=== PATIENT | female | born 2000 | race Caucasian/White ===

== ENCOUNTER 2021-07-25 10:13 | Inpatient (IN) | payer SELFPAY ==
[~2021-07-25] VITALS: Ht 165.1 cm; Wt 77.7 kg
[2021-07-25] MEDS ORDERED: FENTANYL PF 100 MCG/2ML ONE (22:22)
[2021-07-25] MEDS ORDERED: MISOPROSTOL 200 MCG TABLET ONE (22:28)
[2021-07-25] MEDS ORDERED: FENTANYL PF 100 MCG/2ML IVPush PRN ×2 (22:30)
[2021-07-25] MEDS ORDERED: OXYTOCIN 30U/ 0.9% NaCL 500ML 500 ML IV ONE (22:30)
[2021-07-25] MEDS ORDERED: OXYcodone IR 5MG TABLET PO PRN ×2 (22:30)
[2021-07-25] MEDS ORDERED: RHOGAM FROM BLOOD BANK 1 NOTE EA IM/IV PRN (22:30)
[2021-07-25] MEDS ORDERED: ZOLPIDEM 10MG TABLET PO PRN (22:30)
[2021-07-25] MEDS ORDERED: OXYcodone/APAP 5/325MG TABLET PO PRN ×3 (22:30→23:30)
[2021-07-25] MEDS ORDERED: METOCLOPRAMIDE 5 MG/ML, 2ML IVPush PRN (22:30)
[2021-07-25] MEDS ORDERED: CALCIUM CARBONATE 500 MG TAB.CHEW PO PRN (22:30)
[2021-07-25] MEDS ORDERED: SODIUM CITRATE/CITRIC ACID 30 ML UDC PO PRN (22:30)
[2021-07-25] MEDS ORDERED: ACETAMINOPHEN 325 MG TABLET PO PRN ×3 (22:30→23:30)
[2021-07-25] MEDS ORDERED: LACTATED RINGERS 1,000 ML IV SCH ×2 (22:30)
[2021-07-25] MEDS ORDERED: morphine SULFATE 10 MG/ML, 1ML IVPush PRN ×2 (22:30)
[2021-07-25] MEDS ORDERED: DIPHENHYDRAMINE 50 MG CAPSULE PO PRN (22:30)
[2021-07-25] MEDS ORDERED: HYDROcodone/APAP 5/325 TABLET PO PRN (22:30)
[2021-07-25] MEDS ORDERED: ONDANSETRON 2MG/ML, 2ML IVPush PRN (22:30)
[2021-07-25] MEDS ORDERED: OXYcodone/APAP 10/325MG TABLET PO PRN (22:30)
[2021-07-25] MEDS ORDERED: HYDROcodone/APAP 10/325 MG TABLET PO PRN (22:30)
[2021-07-25] MEDS ORDERED: OXYTOCIN 10 UNITS/ML, 1ML IM PRN (22:30)
[2021-07-25] MEDS ORDERED: D5%-LACTATED RINGERS 1,000 ML IV SCH (22:30)
[2021-07-25] MEDS ORDERED: OXYTOCIN 30U/ 0.9% NaCL 500ML 500 ML IV PRN (22:30)
[2021-07-25] MEDS ORDERED: PLEASE ENTER ALLERGIES MC SCH (23:00)
[2021-07-25 23:25] LABS: BASOPHILS % (AUTO) 1 % (0-1); EOSINOPHILS % (AUTO) 0 % (1-7); LYMPHOCYTES % (AUTO) 8 % (22-44); MEAN CORPUSCULAR HEMOGLOBIN 32.4 pg (27.0-34.8); MEAN CORPUSCULAR HGB CONC 34.2 g/dL (32.4-35.8); MEAN PLATELET VOLUME 7.9 fL (7.4-10.4); MONOCYTES % (AUTO) 9 % (2-9); NEUTROPHILS % (AUTO) 82 % (42-75); PLATELET COUNT 93 x10^3/uL (130-400); RED BLOOD COUNT 4.15 x10^6/uL (3.82-5.3)
[2021-07-25] MEDS ORDERED: IBUPROFEN 600 MG TABLET PO PRN (23:30)
[2021-07-25] MEDS ORDERED: METHYLERGONOVINE 0.2 MG/ML IM PRN (23:30)
[2021-07-25] MEDS ORDERED: CARBOPROST TROMETHAMINE 250 MCG/ML, 1ML IM PRN (23:30)
[2021-07-25] MEDS ORDERED: METOCLOPRAMIDE 5 MG/ML, 2ML IV PRN (23:30)
[2021-07-25] MEDS ORDERED: MISOPROSTOL 200 MCG TABLET PR PRN (23:30)
[2021-07-25] MEDS ORDERED: OXYTOCIN 30U/ 0.9% NaCL 500ML 500 ML IV SCH (23:30)
[2021-07-25] MEDS ORDERED: SIMETHICONE 80 MG CHEW TAB PO PRN (23:30)
[2021-07-25] MEDS ORDERED: ONDANSETRON 2MG/ML, 2ML IV PRN (23:30)
[2021-07-25] MEDS ORDERED: DOCUSATE 100 MG CAPSULE PO PRN (23:30)
[2021-07-25] MEDS ORDERED: RHOGAM FROM BLOOD BANK 1 NOTE EA IM/IV ONE (23:30)
[2021-07-25 23:38] LABS: PROTHROMBIN TIME 10.7 Seconds (9.6-11.5)
[2021-07-26 06:53] LABS: BASOPHILS % (AUTO) 0 % (0-1); EOSINOPHILS % (AUTO) 0 % (1-7); LYMPHOCYTES % (AUTO) 21 % (22-44); MEAN CORPUSCULAR HEMOGLOBIN 32.3 pg (27.0-34.8); MEAN CORPUSCULAR HGB CONC 33.9 g/dL (32.4-35.8); MEAN PLATELET VOLUME 7.9 fL (7.4-10.4); MONOCYTES % (AUTO) 13 % (2-9); NEUTROPHILS % (AUTO) 66 % (42-75); PLATELET COUNT 105 x10^3/uL (130-400); RED BLOOD COUNT 4.23 x10^6/uL (3.82-5.3); RED CELL DISTRIBUTION WIDTH 13.5 % (9.6-15.2)
[2021-07-26] MEDS ORDERED: PRENATAL VIT/IRON/FA 1 EACH TABLET PO SCH (09:00)
== END 2021-07-26 08:00 | disposition home or self-care (01) | DRG 805 ==
LOC: EDSTATUS 10:30 → LDIP 21:48
PROVIDERS: ADMIT Obstetrics & Gynecology; ATTEND Obstetrics & Gynecology
PROC: 10E0XZZ Delivery of Products of Conception, External Approach (ICD-10-PCS; principal; 2021-07-25)
PROC: 3E0DXGC Introduction of Other Therapeutic Substance into Mouth and Pharynx, External Approach (ICD-10-PCS; 2021-07-25)
DX: O36.4XX0 Maternal care for intrauterine death, not applicable or unspecified (principal); U07.1 COVID-19; Z37.1 Single stillbirth; O98.52 Other viral diseases complicating childbirth; O33.6XX0 Maternal care for disproportion due to hydrocephalic fetus, not applicable or unspecified; Z3A.24 24 weeks gestation of pregnancy
CPT/HCPCS: 36415; 85025; 85384; 85461; 85610; 85730; 86850; 86870; 86900; 86922; 86923; 87635; 88307; G0378